=== PATIENT | female | born 1990 | race Hispanic/Latino ===

== ENCOUNTER 2017-07-01 10:06 | Emergency (ER) | payer MEDICAID ==
[2017-07-01 11:37] LABS: Anion Gap 21 mmol/L; BUN/Creatinine Ratio 15; Blood Urea Nitrogen 12 mg/dL (7-17); Carbon Dioxide 24 mmol/L (22-30); Chloride 101.1 mmol/L (98-107); Glucose 88 mg/dL (65-100); Potassium 4.1 mmol/L (3.6-5.0); Sodium 142 mmol/L (137-145)
[2017-07-01 11:42] LABS: Hematocrit 45.3 % (30.3-42.9); Hemoglobin 15.7 gm/dl (10.1-14.3); Mean Corpuscular HGB Conc 35 % (30-34); Mean Corpuscular Hemoglobin 30 pg (28-32); Mean Corpuscular Volume 87 fl (79-97); Platelet Count 348 K/mm3 (140-440); Red Blood Count 5.23 M/mm3 (3.65-5.03); Red Cell Distribution Width 14.4 % (13.2-15.2); White Blood Count 12.8 K/mm3 (4.5-11.0)
[2017-07-01 11:54] LABS: Urine Drugs of Abuse Note Disclamer
[2017-07-01 12:10] LABS: Bilirubin,Urine NEG (Negative); Blood,Urine LG (Negative); Ketones,Urine NEG (Negative); Leukocyte Esterase,Urine TR (Negative); Mucus,Urine 3+ /HPF; Nitrite,Urine NEG (Negative); Urobilinogen,Urine < 2.0 mg/dL (<2.0)
[2017-07-01 13:31] LABS: Basophils % (Manual) 0 % (0.0-1.8); Blastocytes % (Manual) 0 %; RBC Morphology Normal
[2017-07-01 13:32] LABS: Diff Status Complete
[2017-07-01 15:45] VITALS: BP 137/86
== END 2017-07-01 16:45 | disposition left against medical advice (07) ==
LOC: ED 10:06
DX: M79.1 Myalgia (principal); F11.10 Opioid abuse, uncomplicated; Z53.21 Procedure and treatment not carried out due to patient leaving prior to being seen by health care provider
CPT/HCPCS: 36415; 80048; 80307; 81001; 85007; 85025; G0480; 80320